=== PATIENT | female | born 1995 | race Caucasian/White ===

== ENCOUNTER 2018-06-10 21:52 | Emergency (ER) | payer OTHER ==
[2018-06-10] MEDS ORDERED: NA CHLORIDE 0.9% 1,000 ML ONE (22:32)
[2018-06-10] MEDS ORDERED: KETOROLAC 30 MG/ML INJ ONE (22:32)
[2018-06-10 22:39] LABS: Urine Blood 1+ (NEG); Urine Glucose NEGATIVE (NEG); Urine Protein TRACE (NEG)
[2018-06-10 22:39] LABS: Absolute Lymphocytes (CBC) 2.3 K/uL (0.7-4.9); Absolute Monocytes 0.7 K/uL (0.1-1.3); Absolute Neutrophil 6.9 K/uL (1.8-8.0); Basophils % 0.6 % (0-1.3); Eosinophils % 1.4 % (0-4.4); Hematocrit 35.7 % (36.0-45.0); Lymphocytes % 22.5 % (15.3-44.8); MCH 29.7 pg (27.0-35.0); MCV 86.3 fL (80-100); MPV 8.7 fL (7.6-11.3); Monocytes % 6.6 % (3.3-12.3); RBC Red Blood Cell Count 4.14 M/uL (3.86-4.86)
[2018-06-10 22:50] LABS: Urine Bacteria <20 /HPF (<20); Urine RBC <5 /HPF (NONE SEEN)
[2018-06-10 22:51] LABS: Urine Culture Reflex Order REFLEXED
[2018-06-10 23:04] LABS: Albumin 3.6 g/dL (3.4-5.0); Bilirubin Direct 0.1 mg/dL (0-0.2); Bilirubin Total 0.2 mg/dL (0.2-1.0); Potassium 3.3 mmol/L (3.5-5.1); Protein, Total 7.5 g/dL (6.4-8.2)
--- NOTE | 2018-06-11 00:34 | ER ---
Nurse's Notes [facility] Name: Kiara Rai Age: 23 yrs Sex: Female : 1995 Arrival Date: 06/10/2018 Time: 21:55 Bed 30 Private MD: Allen Rogers E Diagnosis: Urinary tract infection, site not specified Presentation: 06/10 22:08 Presenting complaint: Patient states: "THE PAIN STARTED THIS MORNING. IT COMES AND rv GOES, AND IT IS LIKE A THROBBING PAIN.". Transition of care: patient was not received from another setting of care. Onset of symptoms was June 10, 2018 at 08:00. Risk Assessment: Do you want to hurt yourself or someone else? Patient reports no desire to harm self or others. Initial Sepsis Screen: Does the patient meet any 2 criteria? No. Patient's initial sepsis screen is negative. Does the patient have a suspected source of infection? No. Patient's initial sepsis screen is negative. Care prior to arrival: None. 22:08 Method Of Arrival: Ambulatory rv 22:08 Acuity: JAK 3 rv Triage Assessment: 22:12 General: Appears in no apparent distress. uncomfortable, Behavior is calm, cooperative. rv Pain: Complains of pain in FLANK Pain currently is 8 out of 10 on a pain scale. Musculoskeletal: Capillary refill < 3 seconds. Historical: - Allergies: 22:12 Ceclor; rv - PMHx: 22:12 None; rv - PSHx: 22:12 Tonsillectomy; rv - Immunization history:: Adult Immunizations up to date. - Social history:: Smoking status: unknown. - Ebola Screening: : Patient negative for fever greater than or equal to 101.5 degrees Fahrenheit, and additional compatible Ebola Virus Disease symptoms Patient denies exposure to infectious person Patient denies travel to an Ebola-affected area in the 21 days before illness onset. Screenin:33 Abuse screen: Denies threats or abuse. Denies injuries from another. Abuse screen: rv Denies threats or abuse. Nutritional screening: No deficits noted. Tuberculosis screening: No symptoms or risk factors identified. Fall Risk None identified. Assessment: 22:10 General: Appears in no apparent distress. uncomfortable, Behavior is calm, cooperative. rv 22:10 Pain: Complains of pain in flank. Neuro: Level of Consciousness is awake, alert, obeys rv commands, Oriented to person, place, time, situation. Cardiovascular: Capillary refill < 3 seconds. Respiratory: Airway is patent. GI: No signs and/or symptoms were reported involving the gastrointestinal system. : Urine is clear, yellow. EENT: No signs and/or symptoms were reported regarding the EENT system. Derm: Skin is intact. Vital Signs: 22:34 BP 121 / 70; Pulse 96; Temp 98.7; Pulse Ox 100% ; Weight 64.41 kg (R); rv 23:06 BP 109 / 70; Pulse 90; Pulse Ox 98% on R/A; rv 06/11 00:51 BP 106 / 64; Pulse 83; Pulse Ox 97% on R/A; rv ED Course: 06/10 21:55 Patient arrived in ED. al2 21:55 Allen Rogers MD is Private Physician. al2 21:58 Hans Zimmer PA is PHCP. cp 21:58 Anil Solis MD is Attending Physician. cp 22:09 Triage completed. rv 22:15 Inserted saline lock: 20 gauge in right antecubital area, using aseptic technique. rv Blood collected. 22:25 Initial lab(s) drawn, by me, sent to lab. Urine collected: clean catch specimen, luh rv colored. 22:26 Radiology exam delayed due to test not completed at this time. [id number] 22:33 Arm band placed on right wrist. rv 22:33 Patient has correct armband on for positive identification. Bed in low position. Call rv light in reach. Side rails up X 1. Adult w/ patient. Pulse ox on. NIBP on. 22:58 CT Stone Protocol In Process Unspecified. EDMS 23:06 Awaiting lab results, Awaiting radiology results. rv 06/11 00:49 No provider procedures requiring assistance completed. IV discontinued, bleeding rv controlled, No redness/swelling at site. Pressure dressing applied. Administered Medications: 06/10 22:30 Drug: NS 0.9% 1000 ml Route: IV; Rate: 1 bolus; Site: right antecubital; rv 06/11 00:48 Follow up: IV Status: Completed infusion rv 06/10 22:30 Drug: TORadol 30 mg Route: IVP; Site: right antecubital; rv 06/11 00:48 Follow up: Response: Pain is decreased rv 00:28 CANCELLED (Physician Discretion): Rocephin - (cefTRIAXone) 1 grams IVPB once over 30 cp mins; (mix in 50 mL NS) 00:48 Drug: Bactrim (160 mg-800 mg (DS) 1 tablet Route: PO; rv 00:48 Follow up: Response: Medication administered at discharge. rv Outcome: 00:33 Discharge ordered by MD. cp 00:49 Discharged to home ambulatory. rv 00:49 Condition: improved 00:49 Discharge instructions given to patient, Instructed on discharge instructions, follow up and referral plans. medication usage, Demonstrated understanding of instructions, follow-up care, medications, Prescriptions given X 3. 00:52 Patient left the ED. rv Signatures: Dispatcher [employer] EDMS Hans Zimmer PA PA cp Love, Angelica al2 Vicente, Ronaldo, JOSE RN Sabrina Laird6
--- NOTE | 2018-06-11 00:35 | EDPHYS ---
Physician Documentation [facility] Name: Kiara Rai Age: 23 yrs Sex: Female : 1995 Arrival Date: 06/10/2018 Time: 21:55 Bed 30 Private MD: Allen Rogers E ED Physician Anil Solis HPI: 06/10 22:10 This 23 yrs old Female presents to ER via Ambulatory with complaints of Back cp Pain, Abdominal Pain. 22:10 The patient presents with pain that is acute, with no known mechanism of injury. The cp symptoms are located in the mid back area. Onset: The symptoms/episode began/occurred this morning. 22:10 Associated signs and symptoms: Pertinent positives: abdominal pain, Pertinent cp negatives: chest pain, constipation, fever, incontinence, numbness, urinary retention, weakness. Historical: - Allergies: 22:12 Ceclor; rv - PMHx: 22:12 None; rv - PSHx: 22:12 Tonsillectomy; rv - Immunization history:: Adult Immunizations up to date. - Social history:: Smoking status: unknown. - Ebola Screening: : Patient negative for fever greater than or equal to 101.5 degrees Fahrenheit, and additional compatible Ebola Virus Disease symptoms Patient denies exposure to infectious person Patient denies travel to an Ebola-affected area in the 21 days before illness onset. ROS: 22:15 Constitutional: Negative for body aches, chills, fever, poor PO intake. cp 22:15 Eyes: Negative for injury, pain, redness, and discharge. cp 22:15 ENT: Negative for drainage from ear(s), ear pain, sore throat, difficulty swallowing, difficulty handling secretions. 22:15 Cardiovascular: Negative for chest pain, edema, palpitations. 22:15 Respiratory: Negative for cough, shortness of breath, wheezing. 22:15 Abdomen/GI: Positive for abdominal pain, of the right lower quadrant and left lower quadrant, Negative for vomiting, diarrhea, constipation, anorexia. 22:15 Back: Positive for flank pain, bilaterally. 22:15 : Negative for vaginal bleeding, vaginal discharge. 22:15 Skin: Negative for cellulitis, rash. 22:15 Neuro: Negative for altered mental status, headache, numbness, tingling, weakness. 22:15 All other systems are negative. Exam: 22:22 Constitutional: The patient appears in no acute distress, alert, awake, non-toxic, well cp developed, well nourished, uncomfortable. 22:22 Head/Face: Normocephalic, atraumatic. cp 22:22 Eyes: Periorbital structures: appear normal, Conjunctiva: normal, no exudate, no injection, Sclera: no appreciated abnormality, Lids and lashes: appear normal, bilaterally. 22:22 ENT: External ear(s): are unremarkable, Nose: is normal, Mouth: Lips: moist, Oral mucosa: pink and intact, moist, Posterior pharynx: is normal, airway is patent, no erythema, no exudate. 22:22 Neck: ROM/movement: is normal, is supple, without pain, no range of motions limitations, no nuchal rigidity. 22:22 Chest/axilla: Inspection: normal, Palpation: is normal, no crepitus, no tenderness. 22:22 Cardiovascular: Rate: normal, Rhythm: regular. 22:22 Respiratory: the patient does not display signs of respiratory distress, Respirations: normal, no use of accessory muscles, no retractions, no splinting, no tachypnea, Breath sounds: are clear throughout, no decreased breath sounds, no stridor, no wheezing. 22:22 Abdomen/GI: Inspection: abdomen appears normal, Bowel sounds: active, all quadrants, Palpation: soft, in all quadrants, mild abdominal tenderness, in the right lower quadrant and left lower quadrant, rebound tenderness, is not appreciated, involuntary guarding, is not appreciated. 22:22 Back: CVA tenderness, is noted bilaterally. 22:22 Skin: cellulitis, is not appreciated, no rash present. 22:22 Neuro: Orientation: to person, place \T\ time. Mentation: lucid, able to follow commands, Cerebellar function: is grossly normal, Motor: moves all fours, strength is normal, Sensation: no obvious gross deficits, Gait: is steady. Vital Signs: 22:34 BP 121 / 70; Pulse 96; Temp 98.7; Pulse Ox 100% ; Weight 64.41 kg (R); rv 23:06 BP 109 / 70; Pulse 90; Pulse Ox 98% on R/A; rv 06/11 00:51 BP 106 / 64; Pulse 83; Pulse Ox 97% on R/A; rv MDM: 06/10 21:58 Patient medically screened. cp 22:30 Differential diagnosis: Cholelithiasis Pyelonephritis ruptured disc, Ureterolithiasis. 06/11 00:32 Data reviewed: vital signs, nurses notes, lab test result(s), radiologic studies, CT cp scan, and as a result, I will discharge patient. 00:32 Counseling: I had a detailed discussion with the patient and/or guardian regarding: the cp historical points, exam findings, and any diagnostic results supporting the discharge/admit diagnosis, lab results, radiology results, to return to the emergency department if symptoms worsen or persist or if there are any questions or concerns that arise at home. ED course: VSS. Pain improved. Will treat with oral Bactrim and discharge to home for continued monitoring. 06/10 22:09 Order name: Basic Metabolic Panel; Complete Time: 23:11 cp 06/10 23:11 Interpretation: Normal except: K 3.3; GFR 87. 06/10 22:09 Order name: CBC with Diff; Complete Time: 23:11 cp 06/10 23:11 Interpretation: Normal except: HCT 35.7. 06/10 22:09 Order name: Hepatic Function; Complete Time: 23:11 cp 06/11 00:17 Interpretation: Normal except: AST 9; GLOB 3.9; A/G 0.9. 06/10 22:09 Order name: Lipase; Complete Time: 23:11 cp 06/10 22:19 Order name: Urine Microscopic Only; Complete Time: 23:11 rv 06/10 23:12 Interpretation: Normal except: UWBC 20-50. 06/10 22:09 Order name: CT Stone Protocol 06/10 22:23 Order name: Urine Dipstick--Ancillary (enter results); Complete Time: 23:11 cc 06/10 23:11 Interpretation: Normal except: UBLD 1+; U NIT POSITIVE; UESTR 3+. 06/10 22:23 Order name: Urine --Ancillary (enter results); Complete Time: 23:11 cc 06/10 22:51 Order name: Urine Culture EDNE 06/10 22:09 Order name: IV Saline Lock; Complete Time: 22:31 cp 06/10 22:09 Order name: Labs collected and sent; Complete Time: 22:31 cp 06/10 22:09 Order name: Urine Test (obtain specimen); Complete Time: 22:21 cp 06/10 22:09 Order name: Urine Dipstick-Ancillary (obtain specimen); Complete Time: 22:21 cp 06/11 00:29 Order name: PO challenge; Complete Time: 00:51 cp Administered Medications: 06/10 22:30 Drug: NS 0.9% 1000 ml Route: IV; Rate: 1 bolus; Site: right antecubital; rv 06/11 00:48 Follow up: IV Status: Completed infusion rv 06/10 22:30 Drug: TORadol 30 mg Route: IVP; Site: right antecubital; rv 06/11 00:48 Follow up: Response: Pain is decreased rv 00:28 CANCELLED (Physician Discretion): Rocephin - (cefTRIAXone) 1 grams IVPB once over 30 cp mins; (mix in 50 mL NS) 00:48 Drug: Bactrim (160 mg-800 mg (DS) 1 tablet Route: PO; rv 00:48 Follow up: Response: Medication administered at discharge. rv Disposition: 06/11/18 00:33 Discharged to Home. Impression: Urinary tract infection, site not specified. - Condition is Stable. - Discharge Instructions: Pyelonephritis, Adult, Urinary Tract Infection, Adult. - Prescriptions for Tylenol- Codeine #3 300-30 mg Oral Tablet - take 2 tablets by ORAL route every 6 hours As needed; 15 tablet. Zofran 4 mg Oral Tablet - take 1 tablet by ORAL route every 12 hours As needed; 20 tablet. Bactrim DS 800- 160 mg Oral Tablet - take 1 tablet by ORAL route every 12 hours for 10 days; 20 tablet. - Medication Reconciliation Form, Thank You Letter, Antibiotic Education, Prescription Opioid Use form. - Follow up: Private Physician; When: 1 - 2 days; Reason: Recheck today's complaints. - Problem is new. - Symptoms have improved. Addendum: 06/13/2018 01:05 Co-signature as Attending Physician, Anil sampson Signatures: Dispatcher [employer] Anil Cerda MD MD pkl Page, Corey, PA PA cp Vicente, Ronaldo RN RN rv Corrections: (The following items were deleted from the chart) 06/10 22:36 22:10 Creatinine for Radiology+C.LAB.BRZ ordered. EDMS EDMS 06/11 00:28 00:28 Rocephin - (cefTRIAXone) 1 grams IVPB once over 30 mins; (mix in 50 mL NS) cp ordered. cp 00:52 00:33 06/11/2018 00:33 Discharged to Home. Impression: Urinary tract infection, site rv not specified. Condition is Stable. Forms are Medication Reconciliation Form, Thank You Letter, Antibiotic Education, Prescription Opioid Use. Follow up: Private Physician; When: 1 - 2 days; Reason: Recheck today's complaints. Problem is new. Symptoms have improved. cp
[2018-06-11] MEDS ORDERED: SMZ./TMP. 800/160 MG TABLET ONE (00:50)
--- NOTE | 2018-06-11 12:34 | RAD REPORT ---
EXAM DESCRIPTION: CT - Stone Protocol - 06/11/2018 6:41 am CLINICAL HISTORY: Flank pain. FLANK PAIN COMPARISON: No comparisons TECHNIQUE: Axial images were obtained without oral or IV contrast. Lack of contrast limits solid org an and vascular assessment. The [id number] spans the entirety of the system partially obscuring uppermost abdomen and lung bases. Coronal reformatted images were obtained and reviewed. All CT scans are performed using dose optimization technique as appropriate and may include automated exposure control or mA/KV adjustment according to patient size. FINDINGS: The lower lung pratt are clear. Imaged portions of the liver and spleen show no suspicious findings on non-contrast imaging. The panc reas and adrenal glands are normal. No pathologic lymphadenopathy in the abdomen or pelvis. No urinary tract stones or obstructive uropathy. No bowel obstruction, free air, free fluid or abscess. Normal appendix noted. No significant bony abnormality. IMPRESSION: No urinary tract stones or obstructive uropathy.
== END 2018-06-11 00:52 | disposition home or self-care (01) ==
LOC: ER 21:52
DX: N39.0 Urinary tract infection, site not specified (principal); Z88.1 Allergy status to other antibiotic agents
CPT/HCPCS: 36415; 74176; 76377; 80048; 80076; 81003; 81015; 81025; 83690; 85025; 87086; 87088; 96361; 96374; 99284; J7030